=== PATIENT | female | born 1990 | race Caucasian/White ===

== ENCOUNTER 2018-01-03 17:08 | Inpatient (IN) | payer OTHER ==
[~2018-01-03] VITALS: Ht 162.6 cm; Wt 71.0 kg
[~2018-01-03 17:08] MED LIST: ACETAMINOPHEN325 M1 PO; FERROUS SULFAT325 MG PO; PRENATAL-FOLIC1 EACH PO
--- NOTE | 2018-01-04 13:01 | PR ---
[facility] [address] [facility] [place], [place] [address] Signed PP Progress Notes Datetime Report Generated by CPN: 01/04/2018 13:00 SUBJECTIVE: [id number] Pain: Within normal limits Nausea/Vomiting: Denies Vital Signs: [id number] Vital Signs: Reviewed; Within Normal Limits EXAM: [id number] Abdomen/Uterus: Normal Lochia: Normal Extremities: Normal IMPRESSION/PLAN/PROCEDURES: [id number] Impression: Normal progression Plan: Continue present management Procedures: None Progress Notes: Doing well, without complaint Signing Physician: Reji Petit MD Copies: ~ *Electronically Signed* 01/04/18 REJI AVILA MD PATIENT NAME: MARCIO CA PROGRESS NOTE DATE OF : 88 PHYSICIAN: REJI PETIT MD RPT #: [id number] REPORT IS CONFIDENTIAL AND NOT TO BE RELEASED WITHOUT AUTHORIZATION
--- NOTE | 2018-01-05 11:07 | PR ---
[facility] [address] [facility] [place] [address] Signed PP Progress Notes Datetime Report Generated by CPN: 01/05/2018 11:07 SUBJECTIVE: [id number] Pain: Within normal limits Nausea/Vomiting: Denies Vital Signs: [id number] Vital Signs: Reviewed; Within Normal Limits Notable Details: PP Hgb/Hct = 10.0/29.7 EXAM: [id number] Abdomen/Uterus: Normal Lochia: Normal Extremities: Normal IMPRESSION/PLAN/PROCEDURES: [id number] Impression: Normal progression Plan: Discharge Procedures: None Progress Notes: Doing well, without complaint, ready to go home. Signing Physician: Reji Petit MD Copies: ~ *Electronically Signed* 01/05/18 1107 REJI PETIT MD PATIENT NAME: MARCIO CA PROGRESS NOTE DATE OF : 88 PHYSICIAN: REJI PETIT MD RPT #: [id number] REPORT IS CONFIDENTIAL AND NOT TO BE RELEASED WITHOUT AUTHORIZATION
== END 2018-01-05 13:35 | disposition home or self-care (01) | DRG 775 ==
LOC: FBC 01-04 00:50
PROVIDERS: ADMIT General Practice
PROC: 10E0XZZ Delivery of Products of Conception, External Approach (ICD-10-PCS; principal; 2018-01-04)
DX: O48.0 Post-term pregnancy (principal); O69.81X0 Labor and delivery complicated by cord around neck, without compression, not applicable or unspecified; Z3A.41 41 weeks gestation of pregnancy; Z37.0 Single live birth
CPT/HCPCS: 36415; 85027; J2590

== ENCOUNTER 2020-09-09 14:26 | Emergency (ER) | payer OTHER, SELFPAY ==
[~2020-09-09] VITALS: Ht 162.6 cm; Wt 70.8 kg
[2020-09-09] MEDS ORDERED: NAPROSYN500 MG PO (15:59)
[2020-09-09] MEDS ORDERED: VISTARIL50 MG PO (15:59)
--- NOTE | 2020-09-10 23:51 | EKG ---
[facility] [address] [facility] [place], [place] [address] Signed Sinus rhythm with occasional and consecutive premature ventricular complexes Abnormal ECG No previous ECGs available Confirmed by POOL VILLALOBOS MD ([id number] on 09/10/2020 11:51:27 PM Electronically Signed By: POOL VILLALOBOS MD 09/10/20 [facility] PATIENT NAME: MARCIO CA Electrocardiogram DATE OF : 88 PHYSICIAN: POOL VILLALOBOS MD REPORT #: [id number] REPORT IS CONFIDENTIAL AND NOT TO BE RELEASED WITHOUT AUTHORIZATION
== END 2020-09-09 16:16 | disposition home or self-care (01) ==
LOC: ED 14:26
DX: F41.0 Panic disorder [episodic paroxysmal anxiety] (principal)
CPT/HCPCS: 71045; 93005; 93010; 96374; 99285-25; J1885

== ENCOUNTER 2021-12-09 00:02 | Inpatient (IN) | payer OTHER ==
[~2021-12-09] VITALS: Ht 162.6 cm; Wt 77.1 kg
[~2021-12-09 00:02] MED LIST changes: +ASPIRIN81 MG PO; +IRON325 M1 PO; +NAPROSYN500 MG PO; +PRENATAL MULTI1 EAC5 PO; +VISTARIL50 MG PO
--- NOTE | 2021-12-09 10:46 | PR ---
[facility] [address] [facility] [place], [place] [address] Signed Progress Notes IP Datetime Report Generated by CPN: 12/09/2021 10:46 PROGRESS NOTES: [id number] Impression: Normal Progression of Labor Procedures: Artificial ROM Plan: Anesthesia Consult VITAL SIGNS: [id number] Vital Signs: Reviewed; Within Normal Limits EXAM: [id number] Dilatation: 5.0 Effacement: 90 Station: -2 Contractions: every 3-5 minutes MEMBRANES: [id number] Membranes Status: Ruptured Comments: Getting very uncomfortable, would like Epidural. Anesthesia called. Mostly anterior cervix, will try "hands-knees" for few contractions, then recheck FETUS A: [id number] FHR Baseline: 125 Variability: Moderate 6-25bpm Accelerations: 15X15 FETUS B: [id number] Signing Physician: Reji Petit MD Copies: ~ *Electronically Signed* 12/09/21 1046 REJI PETIT MD PATIENT NAME: MARCIO CA PROGRESS NOTE DATE OF : 88 PHYSICIAN: REJI PETIT MD RPT #: [id number] REPORT IS CONFIDENTIAL AND NOT TO BE RELEASED WITHOUT AUTHORIZATION
--- NOTE | 2021-12-09 13:10 | PR ---
[facility] [address] [facility] [place], [place] [address] Signed PP Progress Notes Datetime Report Generated by CPN: 12/09/2021 13:10 SUBJECTIVE: [id number] Pain: Within Normal Limits Nausea/Vomiting: Denies Vital Signs: [id number] Vital Signs: Reviewed; Within Normal Limits EXAM: Ongoing Abdomen/Uterus: Normal Lochia: Normal Exam Comments: Labs stable, good urine output IMPRESSION/PLAN/PROCEDURES: [id number] Impression: Normal Progression Other Impression: PP Hemorrhage Plan: Continue Present Management Procedures: None Progress Notes: Doing well, without complaint, bleeding normal since immediate hemorrhage. Received IM Methergine, IV TXA, and extra 40 units IV Pitocin immediately PP Will D/C Folley and increase activity as tolerated. Recheck Hemogram in am. Signing Physician: Reji Petit MD Copies: ~ *Electronically Signed* 12/09/21 1310 REJI PETIT MD PATIENT NAME: MARCIO CA PROGRESS NOTE DATE OF : 88 PHYSICIAN: REJI PETIT MD RPT #: [id number] REPORT IS CONFIDENTIAL AND NOT TO BE RELEASED WITHOUT AUTHORIZATION
--- NOTE | 2021-12-09 15:03 | PR ---
[facility] [address] [facility] [place], [place] [address] Signed PP Progress Notes Datetime Report Generated by CPN: 12/09/2021 15:03 SUBJECTIVE: [id number] Pain: Within Normal Limits Nausea/Vomiting: Denies Vital Signs: [id number] Vital Signs: Reviewed; Within Normal Limits EXAM: Ongoing Abdomen/Uterus: Normal Lochia: Normal Extremities: Normal Exam Comments: Labs stable, good urine output IMPRESSION/PLAN/PROCEDURES: [id number] Impression: Normal Progression Other Impression: Chest pain, SOB Plan: Continue Present Management Procedures: None Progress Notes: Patient got up to bathroom and began having some chest pain and feeling short of breath. Once lying down she felt normal, with no SOB. No complaints now. EKG: Normal sinus rhythm Doubt PE Will follow. Signing Physician: Reji Petit MD Copies: ~ *Electronically Signed* 12/09/21 1503 REJI PETIT MD PATIENT NAME: MARCIO CA PROGRESS NOTE DATE OF : 88 PHYSICIAN: REJI PETIT MD RPT #: [id number] REPORT IS CONFIDENTIAL AND NOT TO BE RELEASED WITHOUT AUTHORIZATION
--- NOTE | 2021-12-10 08:37 | PR ---
[facility] [address] [facility] [place], [place] [address] Signed PP Progress Notes Datetime Report Generated by CPN: 12/10/2021 08:37 SUBJECTIVE: [id number] Pain: Within Normal Limits Nausea/Vomiting: Denies Vital Signs: [id number] Vital Signs: Reviewed; Within Normal Limits Notable Details: PP Hgb/Hct = 9.2/28.0 EXAM: Ongoing Abdomen/Uterus: Normal Lochia: Normal Extremities: Normal Exam Comments: Labs stable, good urine output IMPRESSION/PLAN/PROCEDURES: [id number] Impression: Normal Progression Other Impression: PP Anemia Plan: Continue Present Management Procedures: None Progress Notes: Doing well, without complaint. Tolerating food, voiding without diiffuclty, moving without dizziness, no more chest pain. Probably home this afternoon. Signing Physician: Reji Petit MD Copies: ~ *Electronically Signed* 12/10/21 0837 REJI PETIT MD PATIENT NAME: MARCIO CA PROGRESS NOTE DATE OF : 88 PHYSICIAN: REJI PETIT MD RPT #: [id number] REPORT IS CONFIDENTIAL AND NOT TO BE RELEASED WITHOUT AUTHORIZATION
--- NOTE | 2021-12-10 13:16 | PR ---
[facility] [address] [address] Signed PP Progress Notes Datetime Report Generated by CPN: 12/10/2021 13:16 SUBJECTIVE: [id number] Pain: Within Normal Limits Nausea/Vomiting: Denies Vital Signs: [id number] Vital Signs: Reviewed; Within Normal Limits Notable Details: PP Hgb/Hct = 9.2/28.0 EXAM: Ongoing Abdomen/Uterus: Normal Lochia: Normal Extremities: Normal Exam Comments: Labs stable, good urine output IMPRESSION/PLAN/PROCEDURES: [id number] Impression: Normal Progression Other Impression: PP Anemia Plan: Discharge Procedures: None Progress Notes: Doing well, without complaint, wants to go home. Signing Physician: Reji Petit MD Copies: ~ *Electronically Signed* 12/10/21 1316 REJI PETIT MD PATIENT NAME: MARCIO CA PROGRESS NOTE DATE OF : 88 PHYSICIAN: REJI PETIT MD RPT #: [id number] REPORT IS CONFIDENTIAL AND NOT TO BE RELEASED WITHOUT AUTHORIZATION
--- NOTE | 2021-12-11 17:19 | EKG ---
[facility] [address] [facility] [place] [address] Signed Normal sinus rhythm with sinus arrhythmia Low voltage QRS Borderline ECG When compared with ECG of 09-SEP-2020 14:46, premature ventricular complexes are no longer present QT has shortened Confirmed by SUNG JACKSON MD ([id number]) on 12/11/2021 5:19:09 PM Electronically Signed By: SUNG JACKSON MD 12/11/21 1719 PATIENT NAME: MARCIO CA Electrocardiogram DATE OF : 88 PHYSICIAN: SUNG JACKSON MD REPORT #: [id number] REPORT IS CONFIDENTIAL AND NOT TO BE RELEASED WITHOUT AUTHORIZATION
== END 2021-12-10 15:50 | disposition home or self-care (01) | DRG 806 ==
LOC: FBC 00:02
PROVIDERS: ADMIT General Practice; ATTEND General Practice
PROC: 10E0XZZ Delivery of Products of Conception, External Approach (ICD-10-PCS; principal; 2021-12-09)
PROC: 3E0R3BZ Introduction of Anesthetic Agent into Spinal Canal, Percutaneous Approach (ICD-10-PCS; 2021-12-09)
PROC: 00HU33Z Insertion of Infusion Device into Spinal Canal, Percutaneous Approach (ICD-10-PCS; 2021-12-09)
PROC: 10907ZC Drainage of Amniotic Fluid, Therapeutic from Products of Conception, Via Natural or Artificial Opening (ICD-10-PCS; 2021-12-09)
DX: O41.03X0 Oligohydramnios, third trimester, not applicable or unspecified (principal); O72.1 Other immediate postpartum hemorrhage; Z37.0 Single live birth; D62 Acute posthemorrhagic anemia; Z3A.39 39 weeks gestation of pregnancy; O99.02 Anemia complicating childbirth
CPT/HCPCS: 36415; 85025; 85027; 85384; 85610; 85730; 86850; 86900; 86901; 86922; 87502; 93005; 93010; A9270; J2210; J2590; U0003